=== PATIENT | male | born 1955 | race Caucasian/White ===

== ENCOUNTER 2025-06-15 12:54 | Outpatient (AMB) | payer MEDICARE, MEDICAID, SELFPAY ==
--- NOTE | 2025-06-15 12:57 | A.OFFPC_ITS ---
Vital Signs 06/15/25 13:01 Height 5 ft 8.9 in Weight 151 lb BMI 22.4 BP 127/66 Respiration 14 Pulse 70 Pulse Source Pulse Oximeter Temp 98.1 F Temp Source Temporal Artery Scan Pulse Oximetry (%) 97 Oxygen Delivery Method Room Air Intake Visit Reasons: establish care - see comments Engineering Project Manager Required: No Accompanied by: Self / Same As Patient Allergies No Known Allergies Allergy (Verified 06/15/25 12:58) Tobacco use date assessed: 06/15/25 Fall risk assessment: No Falls in past year Last assessed Fall Risk: 06/15/25 Dental Screening Dental Screen Date: 06/15/25 Did you have a dental visit in the last 12 months?: Yes Did you have a dental problem in the last 6 months where you did not have access to dental care?: No Was dental information given to patient?: Patient has dentist (patient has dentures) [facility] Medical History (Updated 06/15/25 @ 13:30 by Zelalem Bundy MD) Tobacco use disorder Ptosis, left eyelid Bipolar disorder (manic depression) Family History (Updated 06/15/25 @ 13:09 by PEPE Ernst) Father Diabetes Stomach cancer Mother Diabetes Mini stroke Social History (Updated 06/15/25 @ 13:09 by PEPE Ernst) Housing: House Alcohol intake: current Alcohol intake frequency: does not drink Patient Tobacco Use Status: Current everyday Tobacco user Cigarettes Per Day: 5 service: No Current occupational status: retired Cognitive needs: No Hearing needs: No Vision needs: No Questionnaire PHQ-9 Over the last 2 weeks, how often have you been bothered by any of the following problems? 1. Little interest or pleasure in doing things: not at all 2. Feeling down, depressed, or hopeless: not at all 3. Trouble falling or staying asleep, or sleeping too much: not at all 4. Feeling tired or having little energy: not at all 5. Poor appetite or overeating: not at all 6. Feeling bad about yourself - or that you are a failure or have let yourself or your family down: not at all 7. Trouble concentrating on things, such as reading the newspaper or watching television: not at all 8. Moving or speaking so slowly that other people could have noticed. Or the opposite - being so fidgety or restless that you have been moving around a lot more than usual: not at all 9. Thoughts that you would be better off or of hurting yourself in some way: not at all Total score: 0 Source: Developed by Drs. Floyd Fletcher, Kenia Vasquez, Josue Giron and colleagues, with an educational sobia from [employer]. Thrive Questionnaire Date Thrive assessed: 06/15/25 I am a: Patient What is your living situation today?: I have a steady place to live Within the past 12 months, did the food you bought not last and you didn't have the money to get more?: Never true Within the past 12 months, did you worry whether your food would run out before you got money to buy more?: Never true Do you have trouble paying for medicines?: No Do you have trouble getting transportation to medical appointments?: No Do you have trouble paying your heating and electricity bill?: No Do you have trouble taking care of your child, family member or friend?: No Do you have trouble with day-to-day activities such as bathing, preparing meals, shopping, managing finances, etc.?: No Are you currently unemployed and looking for a job?: No Are you interested in more education?: No Please select the resources that you would like help with: None THRIVE Score: 0 AUDIT C Alcohol Use Questionnaire (AUDIT-C) 1. How often do you have a drink containing alcohol?: Never 3. How often do you have six or more drinks on one occasion?: Never Total Score: 0 TACOS-7 AMB Questionnaire TACOS-7 Date TACOS - 7 assessed: 06/15/25 Feeling nervous, anxious, or on edge: 0 = Not at all Not being able to stop or control worryin = Not at all Worrying too much about different things: 0 = Not at all Trouble relaxin = Not at all Being so restless that it is hard to sit still: 0 = Not at all Becoming easily annoyed or irritable: 0 = Not at all Feeling afraid as if something awful might happen: 0 = Not at all Total TACOS-7 score (0-4 normal; 5-9 mild; 10-14 moderate; 15-21 severe): 0 Source: Developed by Drs. Floyd Fletcher, Kenia Vasquez, Josue Giron and colleagues, with an educational sobia from [employer]. Physical exam (Primary Care) Vital Signs: Last Vital Signs Temp 98.1 F 06/15/25 13:01 Pulse 70 06/15/25 13:01 Resp 14 06/15/25 13:01 BP 127/66 06/15/25 13:01 Pulse Ox 97 06/15/25 13:01 Oxygen Delivery Method Room Air 06/15/25 13:01 BMI result Body Mass Index 22.4 Tobacco/Smoking Status: Tobacco use Status Tobacco use date assessed 06/15/25 06/15/25 13:09 Patient Tobacco Use Status Current everyday Tobacco 06/15/25 13:09 PHQ-9: PHQ-9 Score PHQ-9: Total score 0 06/15/25 13:19 Thrive Assessment: Date of Thrive Assessment Date Thrive assessed 06/15/25 06/15/25 13:09 Coding Level of Care Code New Pt Level 4 (25077) Complex EM visit Add On G2211 Diagnoses Bipolar disorder (manic depression) F31.9 Ptosis, left eyelid H02.402 Tobacco use disorder F17.200 Assessment & Plan Assessment & Plan (1) Bipolar disorder (manic depression): Code(s): F31.9 - Bipolar disorder, unspecified Category: Medical Plan: Sees MD at [place] (Dr Ralph) who gives him an injection every two month (2) Ptosis, left eyelid: Code(s): H02.402 - Unspecified ptosis of left eyelid Category: Medical Plan: more of a tic rather than ptsosis (3) Tobacco use disorder: Code(s): F17.200 - Nicotine dependence, unspecified, uncomplicated Category: Medical Plan: Lung Cancer screening ordered. Plan History of Present Illness - The patient is a 70-year-old male presenting for follow-up on previous medical conditions and to discuss preventative care measures. - Right hydrocele: The patient underwent surgery for a large mass on the right testicle, identified as a hydrocele. He is scheduled for a follow-up with Dr. Ureña in March. - Bipolar disorder: Diagnosed approximately three to four years ago, managed with medication including injections every two months. The patient is under the care of Dr. Mansi Shankar, a psychiatrist in [place]. - Suspected transient ischemic attack (TIA): The patient reports symptoms starting around the same time as the bipolar disorder, including twitching in the left eye and facial tightness, possibly related to a mini-stroke. - Tobacco use disorder: The patient has a long history of smoking, starting at age 10, with a significant reduction in recent years to about five cigarettes a day from two packs a day. - Preventative care: The patient has not had a recent colonoscopy and is considering a Cologuard test for colon cancer screening. He also qualifies for lung cancer screening with a low-dose CT scan due to his smoking history. Review of Systems - Neurological: Reports twitching in the left eye and facial tightness, possibly related to a mini-stroke. - Psychiatric: Reports management of bipolar disorder with medication and regular psychiatric follow-up. - Respiratory: Denies current symptoms but has a history of heavy smoking. - Gastrointestinal: Denies recent colonoscopy, considering Cologuard for s creening. Plan Patient was informed and verbally consented to the use of an ambient scribe for clinic note documentation during this visit. 1. Right Hydrocele - Follow-up with Dr. Ureña scheduled for March to monitor post-surgical status. 2. Bipolar Disorder - Continue current medication regimen with injections every two months under the supervision of Dr. Mansi Shankar. 3. Suspected Transient Ischemic Attack (Tia) - Monitor symptoms and consider further neurological evaluation if symptoms persist or worsen. 4. Tobacco Use Disorder - Encourage smoking cessation and consider lung cancer screening with low-dose CT scan. 5. Preventative Care: Colon Cancer Screening With Cologuard - Order Cologuard test for colon cancer screening. 6. Preventative Care: Lung Cancer Screening With Low-Dose Ct Scan - Schedule low-dose CT scan for lung cancer screening due to smoking history. Discussion Notes During the visit, we discussed the patient's history of right hydrocele surgery and the need for follow-up with Dr. Ureña in March. We also reviewed the management of bipolar disorder with regular injections and psychiatric follow- up. The patient reported symptoms suggestive of a transient ischemic attack, and we discussed monitoring these symptoms. Given the patient's smoking history, we considered lung cancer screening with a low-dose CT scan. Additionally, we discussed colon cancer screening options, including the Cologuard test, which the patient found preferable to a colonoscopy. Patient Instructions - Follow up with Dr. Ureña in March for post-surgical evaluation of the right hydrocele. - Continue bipolar disorder treatment with regular injections as scheduled. - Monitor any new or worsening symptoms related to the suspected TIA and report them promptly. - Reduce smoking further and consider quitting; complete lung cancer screening with a low-dose CT scan. - Complete the Cologuard test for colon cancer screening as instructed. Orders: Orders Thyroid Stimulating Hormone Today F31.9 - Bipolar disorder, unspecified UA and rflx microscopic Today F31.9 - Bipolar disorder, unspecified Complete Blood Count no Diff Today F31.9 - Bipolar disorder, unspecified Basic Metabolic Panel Today F31.9 - Bipolar disorder, unspecified Liver Panel Today F31.9 - Bipolar disorder, unspecified Lipid Panel Today F31.9 - Bipolar disorder, unspecified Referrals Cologuard Test Z12.11 - Encounter for screening for malignant neoplasm of colon
[2025-06-15 13:01] VITALS: BP 127/66; PULSE 70; RESP 14; TEMP 36.7; O2SAT 97; BMI 22.4
--- OUTSIDE RECORDS SUMMARY | 2025-06-15 14:11 | XMS_ITS | Clinical Summary ---
Author Organization [facility] Address [address] [place] [address] Care Team Providers Care Molder Trimmer Name Role Phone Unavailable Primary Care Provider Unavailabl e Allergies No known active allergies Medications Medication Sig Dispensed Refills Start Date End Date Status nicotine (NICODERM CQ) 21 MG/24HR Place 1 patch onto the skin daily. 28 patch 0 08/01/2023 Active ARIPiprazole (ABILIFY) 15 MG tablet Take 1 tablet (15 mg total) by mouth daily. 30 tablet 0 07/31/2023 Active amLODIPine (NORVASC) tablet 5 mg Take 1 tablet (5 mg total) by mouth daily. 30 tablet 0 07/31/2023 Active amoxicillin-clavulana te (AUGMENTIN) 875-125 MG per tablet Take 1 tablet by mouth every 12 (twelve) hours. 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 Social History Tobacco Use Types Packs/Day Years Used Date Smoking Tobacco: Every Day Cigarettes 2 Smokeless Tobacco: Never Tobacco Cessation:Ready to Q uit: No; Counseling Given: Yes Alcohol Use Standard Drinks/Week Comments Not Currently 0 (1 standard drink = 0.6 oz pur e alcohol) Sex and Gender Information Value Date Recorded Sex Assigned at Male 01/08/2023 3:59 PM EDT Gender Identity Not on file Sexual Orientation Not on file Job Start Date Occupation Industry Not on file Not on file Not on file Last Filed Vital Signs Vital Sign Reading Time Taken Comments Blood Pressure 136/80 07/31/2023 7:57 AM EDT Pulse 83 07/31/2023 7:56 AM EDT Temperature 36.4 C (97.5 F) 07/31/2023 7:56 AM EDT Respiratory Rate 16 07/31/2023 7:56 AM EDT Oxygen Saturation 98% 07/31/2023 7:56 AM EDT Inhaled Oxygen Concentration - - Weight 57.8 kg (127 lb 8 oz) 07/28/2023 8:02 AM EDT Height 177.8 cm (5' 10 ) 07/24/2023 2:20 PM EDT Body Mass Index 18.29 07/24/2023 2:20 PM EDT Plan of Treatment Health Maintenance Due Date Last Done Comments Hepatitis C Screening 1955 COVID-19 Vaccine (#1) 1955 Pneumococcal Vaccine (1 of 2 - PCV) 1959 Depression Screening 1965 Preventative Health Evaluation 1971 DTap / Tdap / Td (1 - Tdap) 01/06/1972 Colon Cancer Screening (Colonoscopy) 1998 Shingrix-Zoster Vaccine (1 of 2) 2003 Fall Risk Assessment 2018 Influenza Vaccine (#1) 2025 RSV Adult > 60+ Yrs or Pregn ant (1 - 1-dose 75+ series) 01/06/2028 Hepatitis B Vaccines Aged Out No long er eligible based on patient's age to complete this topic RSV Ped < 20 months Aged Out No longe r eligible based on patient's age to complete this topic Advance Directives For more information, please contact: [phone] Latest Code Status on File Code Status Date Activated Date Inactivated Comments Full Code 07/23/2023 5:41 PM 07/31/2023 8:05 PM Thi s code status was ascertained in the following way: per unit protocol. Code Status History Code Status Date Activated Date Inactivated Comments Full Code 01/09/2023 6:36 PM 01/22/2023 7:16 PM This code status was ascertained in the following way: per unit protocol.
--- OUTSIDE RECORDS SUMMARY | 2025-06-15 14:11 | XMS_ITS | Clinical Summary ---
Author Organization [facility] Address [address] [place] [address] Care Team Providers Care Farm Management Supervisor Name Role Phone System, Provider Not In Primary Care Provider Un available Allergies No known active allergies Medications * This document contains information received from the source organization and may not represent a complete record from that organization. amLODIPine (NORVASC) 5 MG tabletIndication s:Primary hypertension Take 1 tablet (5 mg total) by mouth daily. 30 tablet 4 Active clotrimazole-bet amethasone (LOTRISONE) creamIndications :Poor dentition requiring referral to dentistry Apply topically 2 (two) times a day. Not for oral, ophthalmic, or intravaginal use. Do not use on open wounds. 45 g 4 Active multivitamin Tab tabletIndication s:Poor dentition requiring referral to dentistry Take 1 tablet by mouth daily. 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 Patient unable to answer 01/15/2024 Q2: How many drinks containi ng alcohol do you have on a typical day when you are drinking? Patient unable to answer Q3: How often do you have si x or more drinks on one occasion? Patient unable to answer 01/15/2024 Sex and Gender Information Value Date Recorded Sex Assigned at Male 01/09/2024 10:21 AM EDT Legal Sex Male 9:54 AM EDT Gender Identity Male 01/09/2024 10:21 AM EDT Sexual Orientation Choose not to disclose 2023 10:21 AM EDT Last Filed Vital Signs Vital Sign Reading Time Taken Comments Blood Pressure 126/72 01/22/2024 10:08 AM EDT Pulse 77 01/22/2024 10:08 AM EDT Temperature 36.8 C (98.2 F) 01/22/2024 10:04 AM EDT Respiratory Rate 18 01/22/2024 10:0 4 AM EDT Oxygen Saturation 99% 01/21/2024 9:11 AM EDT Inhaled Oxygen Concentration - - Weight 58.4 kg (128 lb 12.8 oz) 01/14/2024 9:00 PM EDT Height 172.7 cm (5' 8 ) 01/14/2024 9:00 PM EDT Body Mass Index 19.58 01/14/2024 9:00 PM EDT Plan of Treatment Health Maintenance Due Date Last Done Comments Advance Care Planning 1955 Hepatitis C Virus Screening 1955 DTaP/Tdap/Td Vaccines (1 - Tdap) 01/06/1972 Pneumococcal Vaccines 50+ (1 of 2 - PCV) 01/06/1972 Colonoscopy 1998 Zoster (Shingles) Vaccine (1 of 2) 2003 COVID-19 Vaccine ( - 2023-2 5 season) 2024 Influenza Vaccine 05/14/2025 RSV Vaccine 60 years and old er and Patients (1 - 1-dose 75+ series) 01/06/2028 Hepatitis B Vaccines Aged Out No long er eligible based on patient's age to complete this topic Insurance [facility] MEDICARE PART A & B MEDICARE PART A & B Advance Directives * Full Code (Latest Code Status on File) Date Activated Date Inactivated Comments 01/14/2024 8:40 PM * Full Code Date Activated Date Inactivated Comments 01/09/2024 6:07 PM 01/14/2024 8:04 PM Healthcare Agents on File Name Relationship Healthcare Agent Relationshi p Communication Warner Sage Adult child 4. Next of Kin ( Spouse, Adult Child, Parent, Adult Sibling, Grandparent) Care Teams Farm Management Supervisor Relationship Specialty Start Date End Date System, Provider Not In PCP - General 01/16/24
--- OUTSIDE RECORDS SUMMARY | 2025-06-15 14:11 | XMS_ITS | Encounter Summary ---
Author Organization [employer] [facility] Address [address] [place] [address] Care Team Providers Care Pharmacy General Manager Name Role Phone Unavailable Primary Care Provider Unavailabl e Encounter Details Date Type Department Care Team (Late st Contact Info) Description 09/23/2024 Telephone [facility] [address] [place] [address] Naveen Crystal DMD [address] [place] [address] Social History Tobacco Use Types Packs/Day Years Used Date Smoking Tobacco: Every Day Cigarettes Smokeless Tobacco: Current Alcohol Use Standard Drinks/Week Comments Not Currently 0 (1 standard drink = 0.6 oz pur e alcohol) Sex and Gender Information Value Date Recorded Sex Assigned at Male 11/25/2023 8:16 AM EST Legal Sex Male 8:35 PM EDT Gender Identity Male 11/25/2023 8:21 AM EST Sexual Orientation Straight 11/25/2023 8: 18 AM EST documented as of this encounter Miscellaneous Notes * Telephone Encounter - Juliana Bello - 09/23/2024 12:18 PM EST Patient having pain from last extraction he also states there ab sets there patient asking for painmedication and antibiotics. documented in this encounter Plan of Treatment Upcoming Encounters Date Type Department Care Team (Late st Contact Info) Description 08/30/2025 3:00 PM EST Office Visit [facility] [address] [place] [address] Zeinab Morales documented as of this encounter Visit Diagnoses Not on filedocumented in this encounter
--- OUTSIDE RECORDS SUMMARY | 2025-06-15 14:11 | XMS_ITS | Clinical Summary ---
Author Organization [facility] Address [address] [place] [address] Care Team Providers Care Industry Segment Specialist Name Role Phone Pcp, No Primary Care Provider Unavailabl e Allergies No known active allergies Medications risperiDONE (Risperdal) 1 mg tabletIndication s:ingris associated with bipolar disorder Take 1 tablet (1 mg total) by mouth 2 (two) times a day for 14 days. 28 tablet 01/04/2023 Active Active Problems Problem Noted Date Diagnosed Date Bipolar affective disorder 01/01/2023 Social History Tobacco Use Types Packs/Day Years Used Date Smoking Tobacco: Every Day Cigarettes Tobacco Cessation:Ready to Q uit: Yes Alcohol Use Standard Drinks/Week Comments Yes 0 (1 standard drink = 0.6 oz pur e alcohol) AUDIT-C Answer Date Recorded Q1: How often do you have a drink containing alcohol? Monthly or less 01/03/2023 Q2: How many drinks containi ng alcohol do you have on a typical day when you are drinking? Patient does not drink Q3: How often do you have si x or more drinks on one occasion? Never 01/03/2023 Hunger Vital Sign Answer Date Recorded Within the past 12 months, y ou worried that your food would run out before you got the money to buy more. Never true 01/04/20 Within the past 12 months, t he food you bought just didn't last and you didn't have money to get more. Never true 01/03/2023 PRAPARE - Transportation Answer Date Re corded In the past 12 months, has l ack of transportation kept you from medical appointments or from getting medications? No 12/13 In the past 12 months, has l ack of transportation kept you from meetings, work, or from getting things needed for daily living? No 01/03/2023 Housing Stability Vital Sign Answer Gerard e Recorded In the last 12 months, was t here a time when you were not able to pay the mortgage or rent on time? No 01/03/2023 In the last 12 months, how many places have you lived? 2 01/03/2023 In the last 12 months, was t here a time when you did not have a steady place to sleep or slept in a [facility] (including now)? No 01/03/2023 CAGE-AID Answer Date Recorded Q1: How often do you have a drink containing alcohol? Monthly or less 01/03/2023 Q2: How many drinks containi ng alcohol do you have on a typical day when you are drinking? Patient does not drink Q3: How often do you have si x or more drinks on one occasion? Never 01/03/2023 Sex and Gender Information Value Date Recorded Sex Assigned at Not on file Legal Sex Male 10:00 AM EDT Gender Identity Not on file Sexual Orientation Not on file Last Filed Vital Signs Vital Sign Reading Time Taken Comments Blood Pressure 131/78 01/04/2023 9:09 AM EDT Pulse 100 01/01/2023 2:14 PM EDT Temperature 36.8 C (98.2 F) 01/04/2023 9:09 AM EDT Respiratory Rate 15 01/03/2023 4:20 PM EDT Oxygen Saturation 98% 01/04/2023 9:09 AM EDT Inhaled Oxygen Concentration - - Weight 75.3 kg (166 lb) 01/01/2023 10:12 AM EDT Height 170.2 cm (5' 7 ) 01/01/2023 6:58 PM EDT Body Mass Index 26 01/01/2023 10:12 AM EDT Plan of Treatment Health Maintenance Due Date Last Done Comments CT Colonography 1953 Colonoscopy 1953 Colorectal Cancer Screening 1953 FIT-DNA 1953 FIT 1953 FOBT 1955 Hepatitis C Screening 1953 Sigmoidoscopy 1955 Medicare Annual Wellness Visit 1971 Pneumococcal Vaccine: 50+ Ye ars (1 of 2 - PCV) 01/06/1972 Tdap and Td Vaccines Adult 01/06/1972 Zoster Vaccines (1 of 2) 2003 Abdominal Aortic Aneurysm (A AA) Screen 2018 Fall Risk Screening 2018 COVID-19 Vaccine ( - 2023-2 5 season) 2024 Influenza Vaccine (#1) 2025 Lipid Panel 01/03/2028 01/02/2023 RSV 60+ (1 - 1-dose 75+ series) 01/06/2028 HIB Vaccines Aged Out No longer eligi ble based on patient's age to complete this topic HPV Vaccines (No Doses Required) Completed Hepatitis A Vaccines Aged Out No long er eligible based on patient's age to complete this topic IPV Vaccines Aged Out No longer eligi ble based on patient's age to complete this topic Meningococcal Vaccine Aged Out No sarahi jose eligible based on patient's age to complete this topic RSV <20 Months Aged Out No longer sacha gible based on patient's age to complete this topic Procedures Procedure Name Priority Date/Time Associated Diagnosis Comments LIPID PANEL WITH RATIOS Routine 01/02/2023 6:40 AM EDT from Last 3 Months or Most Recently Relevant to Health Maintenance Results * Lipid panel (01/02/2023 6:40 AM EDT) Cholesterol 105 <=200 mg/dL 01/02/2023 7:30 AM EDT [facility] Triglycerides 79 <150 mg/dL 01/02/2023 7:30 AM EDT LAB[facility] HDL 46 >40 mg/dL 01/02/2023 7:30 AM EDT LAB[facility] % Total 44 01/02/2023 7:30 AM EDT LAB[facility] LDL Calculated 43 <100 mg/dL 01/02/2023 7:30 AM EDT [facility] Cholesterol HDL Ratio 2.3 01/02/2023 7:30 AM EDT LAB[facility] LDL/HDL Ratio 0.9 01/02/2023 7:30 AM EDT LAB[facility] NON HDL CHOLESTEROL 59 <130 01/02/2023 7:30 AM EDT LAB[facility] Blood Venous blood / Unknown Venipuncture / Unknown 01/02/2023 6:40 AM EDT 01/02/2023 7:05 AM EDT us Bonnieraiza Néstor Blankenship DRAWING PRESS OPERATOR LAB BLOOD ORDERABLES Final Result LABORATORY SERVICES [id number] [place], [place] [id number], [place] from Last 3 Months or Most Recently Relevant to Health Maintenance Insurance MEDICARE Care Teams Industry Segment Specialist Relationship Specialty Start Date End Date Pcp, No [place] [address] PCP - General 01/01/23
--- OUTSIDE RECORDS SUMMARY | 2025-06-15 14:11 | XMS_ITS | Clinical Summary ---
Author Organization [facility] [place] [address] Care Team Providers Care Manager Immunology Name Role Phone Unavailable Primary Care Provider Unavailabl e Social History Tobacco Use Types Packs/Day Years Used Date Smoking Tobacco: Every Day Cigarettes Smokeless Tobacco: Never Alcohol Use Standard Drinks/Week Comments Not Currently 0 (1 standard drink = 0.6 oz pur e alcohol) Sex and Gender Information Value Date Recorded Sex Assigned at Not on file Legal Sex Male 8:10 PM EST Gender Identity Not on file Sexual Orientation Not on file Obstetrics History Plan of Treatment Health Maintenance Due Date Last Done Comments DTaP,Tdap,and Td Vaccines (1 - Tdap) 01/06/1972 Pneumococcal Vaccine: 50+ Years (1 of 2 - PCV) 01/06/1972 Zoster Vaccines (1 of 2) 2003 Abdominal Aortic Aneurysm (AAA) Screen 11/07/2023 Colorectal Cancer Screening: Colonoscopy 11/07/2023 Falls Risk Assessment 11/07/2023 Hepatitis C Screening 11/07/2023 Social Influencers of Health Screening 11/07/2023 Depression Screening 10/14/2024 COVID-19 Vaccine (1 - 2023-2 5 season) 2025 Influenza Vaccine (#1) 2025 Hypertension/CHF/CAD Annual BMP Blood Test 06/15/2025 01/08/2023, 01/07/2023 RSV Immunization Adult Patients (1 - 1-dose 75+ series) 01/06/2028 Cholesterol Screening (Lipid Panel) 07/25/2028 07/25/2023, 01/02/2023 HIB Vaccines Aged Out No longer eligi ble based on patient's age to complete this topic HPV Vaccines Aged Out No longer eligi ble based on patient's age to complete this topic Hepatitis A Vaccines Aged Out No long er eligible based on patient's age to complete this topic Hepatitis B Vaccines Aged Out No long er eligible based on patient's age to complete this topic IPV Vaccines Aged Out No longer eligi ble based on patient's age to complete this topic MMR Vaccines Aged Out No longer eligi ble based on patient's age to complete this topic Meningococcal ACWY Vaccine Aged Out N o longer eligible based on patient's age to complete this topic Meningococcal B Vaccine Aged Out No l onger eligible based on patient's age to complete this topic RSV Immunization Patients Under 20 months Aged Out No longer eligible b ased on patient's age to complete this topic Varicella Vaccines Aged Out No longer eligible based on patient's age to complete this topic
--- OUTSIDE RECORDS SUMMARY | 2025-06-15 14:11 | XMS_ITS ---
Author Name [facility] Organization Unknown Encounters Encounter Type Encounter Reason Primary Diagnosis Location Date Observation Encephalopathy, unspecified Encephalopathy, unspecified [employer] 01/09/2024 Care Team Organization Name Specialty Phone Email Start Date End [place] [employer] [facility] Primary Care 01/20/2024 [employer] 01/09/2024 [employer] 01/09/2024 12/30/2024
--- OUTSIDE RECORDS SUMMARY | 2025-06-15 14:11 | XMS_ITS | Clinical Summary ---
Author Organization [employer] [facility] Address [address] [place] [address] Care Team Providers Care Dough Maker Name Role Phone Unavailable Primary Care Provider Unavailabl e Allergies No known active allergies Medications Multiple Vitamin (multivitamin) capsule Take 1 capsule by mouth in the morning. Active chlorhexidine (Peridex) 0.12 % solutionIndicati ons:History of tooth extraction, unspecified edentulism class Swish 15 mL morning and night for 1 minute. Spit, do not swallow. Do not eat or drink for 30 minutes following use. 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, with behavioral disturbanc e 01/09/2023 Bipolar disorder 01/01/2023 Social History Tobacco Use Types Packs/Day Years Used Date Smoking Tobacco: Every Day Cigarettes Smokeless Tobacco: Current Tobacco Cessation:Ready to Q uit: Not Asked; Counseling Given: Not Answered Alcohol Use Standard Drinks/Week Comments Not Currently 0 (1 standard drink = 0.6 oz pur e alcohol) Sex and Gender Information Value Date Recorded Sex Assigned at Male 11/25/2023 8:16 AM EST Legal Sex Male 8:35 PM EDT Gender Identity Male 11/25/2023 8:21 AM EST Sexual Orientation Straight 11/25/2023 8: 18 AM EST Last Filed Vital Signs Vital Sign Reading Time Taken Comments Blood Pressure 130/60 09/18/2024 3:03 PM EST Pulse 72 12/12/2023 1:29 PM EST Temperature - - Respiratory Rate - - Oxygen Saturation - - Inhaled Oxygen Concentration - - Weight - - Height - - Body Mass Index - - Plan of Treatment Upcoming Encounters Date Type Department Care Team (Late st Contact Info) Description 08/30/2025 3:00 PM EST Office Visit [facility] ADULT [facility] [address] [place] [address] Zeinab Morales Health Maintenance Due Date Last Done Comments CT Colonography 1953 Colonoscopy 1953 Colorectal Cancer Screening 1953 Depression Screening 1953 FIT DNA/Cologuard 1953 FIT 1953 FOBT 1953 Lipid Panel 1953 SDOH Screening 1953 Sigmoidoscopy 1953 Alcohol/Substance Use Screening 1965 Hepatitis C Screening 1971 Zoster Vaccines (1 of 2) 2003 DTaP/Tdap/Td Vaccines (1 - Tdap) 01/18/2010 01/17/2010, 01/17/2003 Pneumococcal Vaccine: 50+ Years (2 of 2 - PPSV23) 08/21/2020 06/26/2020 COVID-19 Vaccine (1 - 2023-2 5 season) 2024 Influenza Vaccine (#1) 2025 0, 11/30/2009, 08/04/2009 Dental Oral Exam 08/27/2025 02/23/2025, 12/12/2023 Dental Prophylaxis 08/27/2025 02/23/2025 Dental X-Ray: Bitewings 01/26/2026 01/26/20, 12/12/2023 Tobacco Screening 02/23/2026 02/23/2025 Dental X-Ray: Full Mouth 12/12/2026 12/12/2023 RSV Patients and Patients Aged 60 years or older (1 - 1-dose 75+ series) 01/06/2028 HIB [...] patient's age to complete this topic RSV under 20 months Aged Out No longe r eligible based on patient's age to complete this topic Rotavirus Vaccines Aged Out No longer eligible based on patient's age to complete this topic Procedures Procedure Name Priority Date/Time Associated Diagnosis Comments PROPHYLAXIS - ADULT Routine 02/23/2025 3 :00 PM EDT Partial edentulism, class I Edentulism PERIODIC ORAL EVALUATION - ESTABLISHED PATIENT Routine 02/23/2025 3:00 PM EDT Partial edentulism, class I Edentulism BITEWING - SINGLE RADIOGRAPHIC IMAGE Routine 01/25/2025 3:30 PM EDT Pain, dental INTRAORAL - COMPLETE SERIES OF RADIOGRAPHIC IMAGES Routine 12/12/2023 1:00 PM EST Dental caries Periodontal disease Secondary dental caries associated with failed or defective dental adventism from Last 3 Months or Most Recently Relevant to Health Maintenance Insurance DENTAL - HSN FULL (MEDICAID) [address] [place]
== END 2025-06-15 13:29 | disposition home or self-care (01) ==
LOC: HO.HMCSH 12:54
PROVIDERS: PCP Internal Medicine; Visit Provider Internal Medicine
DX: F31.9 Bipolar disorder, unspecified (principal); H02.402 Unspecified ptosis of left eyelid; F17.200 Nicotine dependence, unspecified, uncomplicated

== ENCOUNTER → 2025-06-15 12:54 | Outpatient (BNVA) | payer MEDICARE, OTHER, SELFPAY | PROVIDERS: PCP Internal Medicine; Visit Provider Internal Medicine | DX: H02.402 Unspecified ptosis of left eyelid (principal); F31.9 Bipolar disorder, unspecified; F17.210 Nicotine dependence, cigarettes, uncomplicated | CPT/HCPCS: 96127; 99202 ==

== ENCOUNTER 2025-08-13 11:00 | Outpatient (AMB) | payer MEDICARE, SELFPAY ==
--- NOTE | 2025-08-13 08:11 | MHC.OFFVIS ---
Intake Visit Reasons: Current Smoker Allergies No Known Allergies Allergy (Verified 06/15/25 12:58) HPI HPI Current Smoker: Details: Initial visit for this 70yo smoker with a 100+PYH. Patient started smoking at age 10 for 58 years at 2ppd. Currently at 1/4ppd since 10/2024. . Reports marijuana use. Once a week. Denies second hand smoke exposure. Denies exposure to chemicals or substances like asbestos. . Denies known family history of lung cancer. Denies personal history of cancers. Denies chest CT in last year. . Denies recent travel outside the [place]. Denies recent respiratory illness or recent hospitalization for respiratory issues. Denies testing positive for COVID. Denies receiving COVID Vaccine. . Denies fever, chills, new/worsening cough, hemoptysis, hoarseness or dysphagia. Denies significant chest pain, significant dyspnea or unintentional weight loss. Patient Lung Cancer Screening Questionnaire reviewed with patient by provider. . Shared Decision Making Completed. Patient meets criteria. Discussed in detail with patient, the risk vs benefit of LDCT screening. Patient consents to proceed with scan. Discussed smoking cessation. [facility] Medical History (Updated 08/13/25 @ 11:05 by Sofie Mancera PA-C) BPH (benign prostatic hyperplasia) Nicotine dependence, cigarettes, uncomplicated Ptosis, left eyelid Bipolar disorder (manic depression) Surgical History (Updated 08/13/25 @ 08:17 by Sofie Mancera PA-C) History of hydrocelectomy Family History (Updated 06/15/25 @ 13:09 by PEPE Ernst) Father Diabetes Stomach cancer Mother Diabetes Mini stroke Social History (Updated 08/13/25 @ 11:05 by Sofie Mancera PA-C) Housing: House Alcohol intake: current Alcohol intake frequency: does not drink Patient Tobacco Use Status: Current everyday Tobacco user Cigarettes Per Day: 5 Years Smoked: (onset 10yo, 2ppd x 58yrs, now 1/4ppd - 100+PYH) service: No Current occupational status: retired Cognitive needs: No Hearing needs: No Vision needs: No Assessment & Plan Assessment & Plan (1) Nicotine dependence, cigarettes, uncomplicated: Comment: (onset 10yo, 2ppd x 58yrs, now 1/4ppd - 100+PYH) Code(s): F17.210 - Nicotine dependence, cigarettes, uncomplicated Category: Medical Plan: - SDM visit completed today in office. - Patient meets criteria for LDCT for lung cancer screening purposes and is asymptomatic. - Smoking cessation counseling offered. Patients can always call [phone]. - Will arrange for a LDCT scan of the chest for screening purposes at [facility]. - Risks, benefits, and alternatives were discussed in detail and the patient agrees to proceed. - Risks discussed include but are not limited to: radiation exposure, anxiety during testing and while awaiting results, false negatives, false positives and possibility of additional intervention such as further imaging or surgical procedures for benign disease. - Benefits are obviously detection of lung cancer at an early stage which can lead to improved outcomes. - Discussed the importance of screening program compliance with adherence to yearly LDCT scan as scheduled - or sooner interval scans for personalized screening regimen. - Discussed follow up plan. Our office will send a letter discussing results and if needed set up phone call and office visit based on CT findings. - Patient educated on results categorization and the management decisions for suspicious findings potentially found on the screening LDCT scan. Any patient with a Lung RADS score of 3 or 4 will be reviewed by a multidisciplinary team at [facility] to form a plan of action in regards to scan findings. - If further work up is warranted for a suspicious lung finding this will be followed by the Lung Cancer Screening program in conjunction with the Thoracic Surgery Department at [facility]. - A copy of the office note and LDCT will be sent to the patient's PCP - as well as documentation on any associated further plans of care. - Incidental findings on LDCT are the PCP's responsibility. These findings are indicated with an S finding on the LDCT Assessment. A note discussing the findings will be sent to the PCP who is then responsible for further management. - All questions answered.? Plan OF NOTE FOR PCP: The USPTF recommends all men 65-75yo who have ever smoked have a one-time Abdominal Ultrasound to screen for AAA - recommended if not done prior. Coding Level of Care Code Lung Cancer Screening G0296 Diagnoses Nicotine dependence, cigarettes, uncomplicated F17.210
--- OUTSIDE RECORDS SUMMARY | 2025-08-13 12:31 | XMS_ITS | Encounter Summary ---
Author Organization [employer] [facility] Address [address] [place] [address] Care Team Providers Care Teller Name Role Phone Unavailable Primary Care Provider Unavailabl e Encounter Details Date Type Department Care Team (Late st Contact Info) Description 09/23/2024 Telephone [facility] [address] [place] [address] Naveen Crystal DMD [address] [place] [address] Social History Tobacco Use Types Packs/Day Years [...] Care Team (Late st Contact Info) Description 08/31/2025 3:00 PM EST Office Visit [facility] AD[facility] [address] [place] [address] Zeinab Morales documented as of this encounter Visit Diagnoses Not on filedocumented in this encounter
--- OUTSIDE RECORDS SUMMARY | 2025-08-13 12:31 | XMS_ITS | Clinical Summary ---
Author Organization [employer] [facility] Address [address] [place] [address] Care Team Providers Care Registration Representative Name Role Phone Pcp, No Primary Care [...] place to sleep or slept in a mcc (including now)? No 01/03/2023 CAGE-AID Answer Date [...] 2018 Fall Risk Screening 2018 COVID-19 Vaccine (2024-2 6 season) 2025 Influenza Vaccine (#1) 2025 Lipid Panel 01/03/2028 [...] 7:05 AM EDT us Bonnieraiza Néstor Blankenship TELECOMM[employer]ICATIONS SWITCH TECHNICIAN LAB BLOOD ORDERABLES Final Result LABORATORY SERVICES [id number] [place], [place] [id number], [place] from Last 3 Months or Most Recently Relevant to Health Maintenance Insurance MEDICARE Care Teams Registration Representative Relationship Specialty Start Date End Date Pcp, [place] [address] PCP - General 01/01/23
--- OUTSIDE RECORDS SUMMARY | 2025-08-13 12:31 | XMS_ITS | Clinical Summary ---
Author Organization [facility] Address [address] [place] [address] Care Team Providers Care Crisis Worker Name Role Phone System, Provider Not In [...] of 2 - PCV) 01/06/1972 Colonoscopy 1998 RSV Vaccine 50 years and old er and Patients (1 - Risk 50-74 years 1-dose series) 2003 Zoster (Shingles) Vaccine (1 of 2) 2003 Influenza Vaccine 05/14/2025 COVID-19 Vaccine (1 - 2023-2 5 season) 2025 Hepatitis B Vaccines Aged Out No long er eligible based on patient's age to complete this topic Insurance [facility] MEDICARE PART A & B MEDICARE PART [...] Child, Parent, Adult Sibling, Grandparent) Care Teams Crisis Worker Relationship Specialty Start Date End Date System, Provider Not In PCP - General 01/16/24
--- OUTSIDE RECORDS SUMMARY | 2025-08-13 12:31 | XMS_ITS | Clinical Summary ---
Author Organization [employer] Address [address] [place] [address] Care Team Providers Care [place] [employer] Group Leader Name Role Phone Unavailable Primary Care Provider [...] affective disorder, manic, severe, with psychotic behavior ([facility]) 01/10/2023 Psychosis in elderly, with behavioral disturbanc [...] Description 08/31/2025 3:00 PM EST Office Visit [facility] ADULT DENTAL [address] [place] [address] Zeinab Morales Health Maintenance Due Date Last [...] 5 season) 2025 Influenza Vaccine (#1) 2025 0, 11/30/2009, 08/04/2009 Dental Oral Exam 08/27/2025 02/23/2025, 12/12/2023 Dental Prophylaxis 08/27/2025 02/23/2025 Dental X-Ray: Bitewings 01/26/2026 01/26/20 25, 12/12/2023 Tobacco Screening 02/23/2026 02/23/2025 Dental X-Ray: [...] caries associated with failed or defective dental hindu from Last 3 Months or Most Recently Relevant to Health Maintenance Insurance DENTAL - HSN FULL (MEDICAID) [address] [place]
--- OUTSIDE RECORDS SUMMARY | 2025-08-13 12:31 | XMS_ITS | Clinical Summary ---
Author Organization [facility] Address [address] [place] [address] Care Team Providers Care Mover Helper Name Role Phone Unavailable Primary Care Provider [...] Advance Directives For more information, please contact: [phone] Latest Code Status on File Code Status [...]
== END 2025-08-13 11:29 | disposition home or self-care (01) ==
LOC: HO.HPS 11:00
PROVIDERS: PCP Internal Medicine; Referring Provider Internal Medicine; Visit Provider Physician Assistant Medical
DX: F17.210 Nicotine dependence, cigarettes, uncomplicated (principal)
CPT/HCPCS: G0296

== ENCOUNTER 2025-08-13 11:19 | Outpatient (REF) | payer MEDICARE, SELFPAY ==
--- NOTE | ~2025-08-13 | CT_ITS ---
EXAMINATION: CT LUNG SCREENING HISTORY: F17.210 - Nicotine dependence, cigarettes, uncomplicated TECHNIQUE: Low dose axial images were obtained from the sternal notch to upper abdomen without IV contrast per standard departmental protocol. Sagittal and coronal reformatted images were also obtained and reviewed. One or more of the following techniques was used for dose reduction: Automated exposure control, adjustment of the mA and/or kV according to patient size, use of iterative reconstruction technique. DLP: 52 mGy-cm COMPARISON: There are no prior studies available for comparison. FINDINGS: Lung nodules: There are 2 mm nodules in the right upper lobe (series 4, image 32), and in the left lower lobe (series 4, image 120). No suspicious pulmonary nodules are identified. Emphysema: mild Coronary Calcification: mild Aortic Arch Calcification: mild Potentially Significant Incidentals : There is dilatation of the ascending thoracic aorta measuring up to 4.6 cm in diameter. Additional Chest Findings: There is no pleural or pericardial effusion. No mediastinal or axillary lymphadenopathy is identified. Visualized upper abdomen: The visualized portions of the liver, spleen, and adrenals have an unremarkable unenhanced appearance. CT/CT lung screening IMPRESSION: No suspicious pulmonary nodules are identified. LUNG-RADS ASSESSMENT: Lung-RADS 2: Benign MANAGEMENT: Continue annual screening with LDCT in 12 months Category S: S Electronically signed by: Floyd Rudolph MD 08/13/2025 12:00 PM EDT
--- OUTSIDE RECORDS SUMMARY | 2025-08-13 12:52 | XMS_ITS | Clinical Summary ---
Author Organization [facility] [place] [address] Care Team Providers Care Assistant Principal Name Role Phone Unavailable Primary Care Provider [...] Health Maintenance Due Date Last Done Comments Colorectal Cancer Screening: Colonoscopy 1953 DTaP,Tdap,and Td Vaccines (1 - Tdap) 01/06/1972 Pneumococcal Vaccine: 50+ Years (1 of 2 - PCV) 01/06/1972 Zoster Vaccines (1 of 2) 2003 Abdominal Aortic Aneurysm (AAA) Screen 11/07/2023 Falls Risk Assessment 11/07/2023 Hepatitis C [...]
== END 2025-08-13 11:20 | disposition home or self-care (01) ==
LOC: HO.CT 11:19
PROVIDERS: PCP Internal Medicine; Visit Provider Physician Assistant Medical
DX: Z12.2 Encounter for screening for malignant neoplasm of respiratory organs (principal); F17.210 Nicotine dependence, cigarettes, uncomplicated
CPT/HCPCS: 71271; G0296

== ENCOUNTER → 2025-08-13 11:20 | Outpatient (BNV) | payer MEDICARE, SELFPAY | PROVIDERS: PCP Internal Medicine; Visit Provider Radiology Diagnostic Radiology | DX: F17.210 Nicotine dependence, cigarettes, uncomplicated (principal) | CPT/HCPCS: 71271 ==

== ENCOUNTER 2025-08-23 10:37 | Outpatient (AMB) | payer MEDICARE, MEDICAID, SELFPAY ==
[2025-08-23 10:39] VITALS: BP 133/61; PULSE 72; RESP 14; TEMP 36.4; O2SAT 97; BMI 23.1
--- NOTE | 2025-08-23 10:39 | A.OFFPC_ITS ---
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 Required: No Accompanied by: Self / Same As Patient Allergies No Known Allergies Allergy (Verified 08/23/25 10:40) Tobacco use date assessed: 06/15/25 Dental Screening Dental Screen Date: 06/15/25 [facility] Medical History BPH (benign prostatic hyperplasia) Nicotine dependence, cigarettes, uncomplicated Ptosis, left eyelid Bipolar disorder (manic depression) Surgical History History of hydrocelectomy Family History Father Diabetes Stomach cancer Mother Diabetes Mini stroke Social History Housing: House Alcohol intake: current Alcohol intake frequency: does not drink Patient Tobacco Use Status: Current everyday Tobacco user Cigarettes Per Day: 5 Years Smoked: (onset 10yo, 2ppd x 60yrs, now 1/4ppd - 100+PYH) Packs per year/per ci.00 service: No Current occupational status: retired Cognitive needs: No Hearing needs: No Vision needs: No Questionnaire PHQ-9 Over the last 2 weeks, how often have you been bothered by any of the following problems? 1. Little interest or pleasure in doing things: not at all 2. Feeling down, depressed, or hopeless: not at all 3. Trouble falling or staying asleep, or sleeping too much: not at all 4. Feeling tired or having little energy: not at all 5. Poor appetite or overeating: not at all 6. Feeling bad about yourself - or that you are a failure or have let yourself or your family down: not at all 7. Trouble concentrating on things, such as reading the newspaper or watching television: not at all 8. Moving or speaking so slowly that other people could have noticed. Or the opposite - being so fidgety or restless that you have been moving around a lot more than usual: not at all 9. Thoughts that you would be better off or of hurting yourself in some way: not at all Total score: 0 Depression Screening Interpretation: Negative Depression Screening Done: Yes 22098 - PHQ-9 Billing: Yes Source: Developed by Drs. Floyd Fletcher, Kenia Vasquez, Josue Girno and colleagues, with an educational sobia from [employer]. Thrive Questionnaire Date Thrive assessed: 06/15/25 I am a: Patient What is your living situation today?: I have a steady place to live Within the past 12 months, did the food you bought not last and you didn't have the money to get more?: Never true Within the past 12 months, did you worry whether your food would run out before you got money to buy more?: Never true Do you have trouble paying for medicines?: No Do you have trouble getting transportation to medical appointments?: No Do you have trouble paying your heating and electricity bill?: No Do you have trouble taking care of your child, family member or friend?: No Do you have trouble with day-to-day activities such as bathing, preparing meals, shopping, managing finances, etc.?: No Are you currently unemployed and looking for a job?: No Are you interested in more education?: No Please select the resources that you would like help with: None THRIVE Score: 0 AUDIT C Alcohol Use Questionnaire (AUDIT-C) 1. How often do you have a drink containing alcohol?: Never 3. How often do you have six or more drinks on one occasion?: Never Total Score: 0 TACOS-7 AMB Questionnaire TACOS-7 Date TACOS - 7 assessed: 06/15/25 Feeling nervous, anxious, or on edge: 0 = Not at all Not being able to stop or control worryin = Not at all Worrying too much about different things: 0 = Not at all Trouble relaxin = Not at all Being so restless that it is hard to sit still: 0 = Not at all Becoming easily annoyed or irritable: 0 = Not at all Feeling afraid as if something awful might happen: 0 = Not at all Total TACOS-7 score (0-4 normal; 5-9 mild; 10-14 moderate; 15-21 severe): 0 Source: Developed by Drs. Floyd Fletcher, Kenia Vasquez, Josue Giron and colleagues, with an educational sobia from [employer]. TACOS-7 Assessment Billing TACOS-7 Assessment Tool: TACOS-7 Assessment 13706 Physical exam (Primary Care) Vital Signs: Last Vital Signs Temp 97.6 F 08/23/25 10:39 Pulse 72 08/23/25 10:39 Resp 14 08/23/25 10:39 BP 133/61 08/23/25 10:39 Pulse Ox 97 08/23/25 10:39 Oxygen Delivery Method Room Air 08/23/25 10:39 BMI result Body Mass Index 23.1 Tobacco/Smoking Status: Tobacco use Status Tobacco use date assessed 06/15/25 08/23/25 10:46 Patient Tobacco Use Status Current everyday Tobacco 08/23/25 10:46 PHQ-9: PHQ-9 Score PHQ-9: Total score 0 08/23/25 10:46 Depression Screening Interpretation: Negative Thrive Assessment: Date of Thrive Assessment Date Thrive assessed 06/15/25 08/23/25 10:46 Coding Level of Care Code Est Pt Level 4 (97797) Complex EM visit Add On G2211 Diagnoses Ascending aorta dilatation I77.810 Additional Codes TACOS-7 Assessment Billing - TACOS-7 Assessment Tool: TACOS-7 Assessment 58086 ([id number]) PHQ-9 - 39086 - PHQ-9 Billing: Yes ([id number]) Assessment & Plan Assessment & Plan (1) Ascending aorta dilatation: Comment: (dilatation of ascending thoracic aorta 4.6 cm on 08/13/25 LDCT) Code(s): I77.810 - Thoracic aortic ectasia Category: Medical Plan: History of Present Illness - The patient is a 70-year-old male presenting for a follow-up visit to discuss recent CT scan results. - The CT scan, initially performed for lung cancer screening, was negative for malignancy but revealed an incidental finding of an aortic dilatation, also known as an aneurysm, measuring 4.6 cm. - The patient's blood pressure was 133/61 mmHg during the visit, and he is not currently taking any antihypertensive medications. - He is currently prescribed Aristata and another psychiatric medication, the latter of which he reports causes dizziness. - The patient reports smoking 5-6 cigarettes per day, having previously smoked two packs a day. - For colon cancer screening, he completed a Cologuard test, which was negative. - He has not received a flu shot. Social History - Tobacco Use: Patient reports smoking 5-6 cigarettes daily but has agreed to reduce his intake to 3 per day. - Substance Use History: Patient reports a history of smoking two packs of cigarettes per day and heavy cannabis use during the COVID-19 pandemic. - Living Situation: Lives with his son. - Functional Status: He is independent with activities of daily living, including cooking. - Driving: Drives a car but tries to avoid driving at night. Review of Systems - Neurological: Reports dizziness, which he attributes to a new medication. - Vision: Reports vision is okay. Physical Exam General: Cooperative and healthy appearing Nutritional Appearance: Well nourished Orientation/consciousness: Patient oriented x3 Limitations: No limitations Head: Normal to inspection General: Appearance normal, both eyes and all related structures Neck: Normal visual inspection Chest: Normal palpation of entire chest wall Respiratory: N ormal respiratory effort Neurology: Patient oriented x3, reports dizziness. Results - Imaging: A recent CT scan was negative for lung cancer but showed an incidental finding of an aortic aneurysm measuring 4.6 cm. - Screening Tests: Cologuard test was negative. Plan - Will start a low-dose blood pressure medication to better control his blood pressure, which is important for managing the aortic aneurysm. - The aortic aneurysm will be monitored with an annual scan to track its size. - Patient has agreed to reduce his daily cigarette consumption to three per day. - The patient declined the influenza vaccine at this time, and this decision was respected. - Patient was advised to use the [facility] lab in [place] for future tests. - Patient will discuss stopping his new psychiatric medication with his psychiatrist due to side effects of dizziness. - Patient advised to keep his follow-up appointment. Discussion Notes I discussed the results of the recent CT scan with the patient. I explained that while the scan was negative for lung cancer, it revealed an incidental finding of an aortic aneurysm measuring 4.6 cm. I educated him that surgery is typically considered if the aneurysm grows larger than 5 cm and emphasized his responsibility to follow up annually for a monitoring scan. We discussed strategies to prevent the aneurysm from enlarging, including better blood pressure control and smoking reduction. I recommended starting a low-dose blood pressure medication, and he agreed to reduce his smoking to 3 cigarettes per day. We also discussed the influenza vaccine, reviewing the risks and benefits, and I respected his decision to decline it at this time. The patient verbalized understanding of his condition and the management plan. Patient Instructions - A recent CT scan showed a small enlargement (aneurysm) of your main artery, the aorta. - It is very important that you get this checked with a new scan every year to make sure it is not getting bigger. - You will be started on a new, low-dose blood pressure medication. - Please reduce your smoking to no more than 3 cigarettes per day. - You should talk to your psychiatrist about the dizziness you are feeling from your new medication. - For your next lab tests, please go to the facility in [place]. - Please be sure to keep your next follow-up appointment.
--- OUTSIDE RECORDS SUMMARY | 2025-08-23 12:29 | XMS_ITS | Clinical Summary ---
Author Organization [facility] [place] [address] Care Team Providers Care Educational Specialist Name Role Phone Unavailable Primary Care Provider [...]
--- OUTSIDE RECORDS SUMMARY | 2025-08-23 12:29 | XMS_ITS | Clinical Summary ---
Author Organization [employer] [facility] Address [address] [place] [address] Care Team Providers Care Retail Custodial Associate Name Role Phone Pcp, No Primary Care [...] place to sleep or slept in a usp (including now)? 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
--- OUTSIDE RECORDS SUMMARY | 2025-08-23 12:29 | XMS_ITS | Clinical Summary ---
Author Organization [facility] Address [address] [place] [id number] Care Team Providers Care Polisher Sand Name Role Phone System, Provider Not In [...] patient's age to complete this topic Insurance [facility] [address] MEDICARE PART A & B MEDICARE PART [...] Child, Parent, Adult Sibling, Grandparent) Care Teams Polisher Sand Relationship Specialty Start Date End Date System, Provider Not In PCP - General 01/16/24
--- OUTSIDE RECORDS SUMMARY | 2025-08-23 12:29 | XMS_ITS | Clinical Summary ---
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
--- OUTSIDE RECORDS SUMMARY | 2025-08-23 12:29 | XMS_ITS | Clinical Summary ---
Author Organization [facility] Address [address] [place] [address] Care Team Providers Care Computer Support Specialist Instructor Name Role Phone Unavailable Primary Care Provider [...] Advance Directives For more information, please contact: [phone] Latest Code Status on File Code Status [...]
--- OUTSIDE RECORDS SUMMARY | 2025-08-23 12:29 | XMS_ITS | Encounter Summary ---
Author Organization [employer] [facility] Address [address] [place] [address] Care Team Providers Care Bag Bleacher Name Role Phone Unavailable Primary Care Provider Unavailabl e Encounter Details Date Type Department Care Team (Late st Contact Info) Description 09/23/2024 Telephone [facility]ULT [facility] [address] [place] [address] Naveen Crystal, KARMEN [address] [place] [address] Social History Tobacco Use Types Packs/Day Years [...] Description 09/08/2025 1:30 PM EST Office Visit [facility] [address] [place] [address] Zeinab Morales documented as of this encounter Visit Diagnoses Not on filedocumented in this encounter
== END 2025-08-23 11:12 | disposition home or self-care (01) ==
LOC: HO.HMCSH 10:37
PROVIDERS: PCP Internal Medicine; Visit Provider Internal Medicine
DX: I77.810 Thoracic aortic ectasia (principal)

== ENCOUNTER → 2025-08-23 10:37 | Outpatient (BNVA) | payer MEDICARE, SELFPAY | PROVIDERS: PCP Internal Medicine; Visit Provider Internal Medicine | DX: Z71.2 Person consulting for explanation of examination or test findings (principal); Z13.31 Encounter for screening for depression; I77.810 Thoracic aortic ectasia | CPT/HCPCS: 96127; 99212 ==